=== PATIENT | male | born 1950 | race Caucasian/White ===

== ENCOUNTER → 2019-09-06 | Outpatient (CLI) | payer OTHER ==
[2015-11-30 10:52] VITALS: BP 118/77
[~2019-09-06] MED LIST: ALLO300T PO; CELE200C PO; LISI1TAB19 PO; SIMV40TA18 PO
--- NOTE | 2019-09-07 11:18 | RAD ---
2 views lumbar spine without comparison for T12-L1 fracture. FINDINGS: There is minimal narrowing of the T12 vertebral body, with no definite acute fracture or osseous normality identified. If there strong clinical concern for fracture at this level, further evaluation with MRI suggested. There is narrowing of the L4-5 intervertebral disc space, with endplate changes, and there is bulky facet arthrosis throughout the lower lumbar spine. No alignment abnormality. Extensive atherosclerosis. IMPRESSION: 1. Multilevel degenerative changes, most prominently at L4-5. 2. No definite fracture or acute osseous abnormality. There may be a mild chronic anterior superior endplate deformity of T12 but this is not seen to good advantage. If there are strong clinical concern for fracture, consider further evaluation with MRI. 3. Extensive aortic vasculopathy. Electronically signed by: Silas Maurice MD (09/07/2019 11:15 AM) [id number]
== END | disposition home or self-care (01) ==
LOC: RAD 11:12
PROVIDERS: ATTEND Neurological Surgery
DX: M47.816 Spondylosis without myelopathy or radiculopathy, lumbar region (principal); M48.061 Spinal stenosis, lumbar region without neurogenic claudication
CPT/HCPCS: 72100